=== PATIENT | female | born 1945 | race Caucasian/White ===

== ENCOUNTER 2021-04-23 09:55 | Outpatient (CLI) | payer MEDICARE, BC ==
[2021-04-23 11:15] LABS: Mean Corpuscular HGB CONC 33.6 g/dL (32.0-36.0); Mean Corpuscular Hemoglobin 31.6 pg (27.0-33.0); Mean Corpuscular Volume 94.1 fl (81.6-98.3); Platelet Count 221 10x3/uL (150-450); RBC Distribution Width 12.5 % (11.5-14.5); Red Blood Cell (RBC) Count 4.43 10x6/uL (3.90-5.03); White Blood Cell (WBC) Count 13.8 10x3/uL (3.5-10.5)
[2021-04-23 11:45] LABS: Anion Gap 18 mmol/L (10-20); BUN (Urea Nitrogen) 33 mg/dL (9.8-20.1); Calc. Creatinine Clearance 0 mL/min (70-130); Calcium 9.9 mg/dL (7.8-10.44); Carbon Dioxide 17 mmol/L (23-31); Chloride 110 mmol/L (98-107); Glucose 225 mg/dL (83-110); Potassium 4.9 mmol/L (3.5-5.1); Sodium 140 mmol/L (136-145)
[2021-04-23 16:03] LABS: Hemoglobin A1c 5.9 % (4.0-6.0)
[2021-04-23 17:35] LABS: SARS-CoV-2 PCR by NAA Not Detected (NotDetected)
== END 2021-04-23 09:56 | disposition home or self-care (01) ==
LOC: CSHLAB 09:55
PROVIDERS: ATTEND Orthopaedic Surgery
DX: Z01.818 Encounter for other preprocedural examination (principal); Z20.822 Contact with and (suspected) exposure to COVID-19
CPT/HCPCS: 80048; 83036; 85027; 87081; 93005; 93010; U0003; U0005

== ENCOUNTER 2021-04-28 05:26 | Inpatient (IN) | payer MEDICARE, BC ==
[2021-04-24 13:35] VITALS: BMI 37.8
[2021-04-28] MEDS ORDERED: Gabapentin 300 MG CAP ONE (05:47)
[2021-04-28] MEDS ORDERED: Acetaminophen 500 MG TAB ONE (05:47)
[2021-04-28] MEDS ORDERED: Lidocaine 1% MPF 2 ML VIAL ONE ×2 (05:48→06:17)
[2021-04-28] MEDS ORDERED: CeleCOXIB 100 MG CAP ONE (05:48)
[2021-04-28] MEDS ORDERED: Lidocaine 4% Topical Sol 50 ML BOT ONE (05:53)
[2021-04-28] MEDS ORDERED: Rocuronium Bromide 10 MG/ML (10ML VIAL) ONE (05:59)
[2021-04-28] MEDS ORDERED: PROPOFOL 20 ML ONE (05:59)
[2021-04-28] MEDS ORDERED: Fentanyl 100 MCG/2 ML VIAL ONE ×2 (05:59→06:04)
[2021-04-28] MEDS ORDERED: Ondansetron PF 4 MG/2 ML Vial ONE (05:59)
[2021-04-28] MEDS ORDERED: Midazolam HCl 2 mg/2 ml Vial ONE ×2 (05:59→06:03)
[2021-04-28] MEDS ORDERED: Dexamethasone 20 MG/5 ML VIAL ONE (05:59)
[2021-04-28] MEDS ORDERED: Lidocaine 1% PF 5 ML VIAL ONE ×2 (06:00→06:04)
[2021-04-28] MEDS ORDERED: EPINEPHrine 1 MG/ML AMP ONE ×2 (06:03→06:30)
[2021-04-28] MEDS ORDERED: Dexamethasone 4 mg/ml Vial ONE (06:03)
[2021-04-28] MEDS ORDERED: Bupivacaine PF 0.5% 30 ML VIAL ONE (06:04)
[2021-04-28] MEDS ORDERED: Ketorolac Tromethamine 30 MG/ML VIAL ONE (06:30)
[2021-04-28] MEDS ORDERED: Morphine 10 MG/ML VIAL ONE (06:31)
[2021-04-28] MEDS ORDERED: Tranexamic Acid 1,000 MG/10 ML VIAL ONE (06:31)
[2021-04-28] MEDS ORDERED: Lidocaine 1% w/Epinephrine 1:100K 30 ML VIAL ONE (06:32)
[2021-04-28] MEDS ORDERED: Ropivacaine 0.2% HCl/PF 0 ML ONE (06:32)
[2021-04-28] MEDS ORDERED: Neomycin-Polymyxin 1 ML AMP ONE (06:33)
[2021-04-28] MEDS ORDERED: ceFAZolin 2 GM/DEX 5% 100 ML BAG ONE (06:51)
[2021-04-28] MEDS ORDERED: Morphine 2 MG/ML VIAL SLOW IVP PRN (06:53)
[2021-04-28] MEDS ORDERED: Ondansetron PF 4 MG/2 ML Vial IVP PRN (06:53)
[2021-04-28] MEDS ORDERED: traMADol HCl 50 MG TAB PO PRN (06:53)
[2021-04-28] MEDS ORDERED: Bisacodyl 10 MG SUPP PR PRN (06:53)
[2021-04-28] MEDS ORDERED: Zolpidem Tartrate 5 MG TAB PO PRN (06:53)
[2021-04-28] MEDS ORDERED: Acetaminophen 325 MG TAB PO PRN (06:53)
[2021-04-28] MEDS ORDERED: HYDROcodone/Acetaminophen 7.5/325 mg Tablet PO PRN (06:53)
[2021-04-28] MEDS ORDERED: SUGAMMADEX SODIUM 200 MG/2 ML VIAL ONE (06:58)
[2021-04-28] MEDS ORDERED: ePHEDrine Sulfate 50 MG/10 ML VIAL ONE (07:33)
[2021-04-28] MEDS ORDERED: Famotidine 20 MG TAB PO SCH (09:00)
[2021-04-28] MEDS: Sodium Chloride 0.9% 1,000 ML IV SCH (11:30)
[2021-04-28] MEDS: CEFAZOLIN 2 GM in Premix Bag 1 BAG IVPB SCH ×2 (11:30→15:55)
[2021-04-28] MEDS: Ketorolac Tromethamine 30 MG/ML VIAL IVP SCH ×2 (11:30→17:46)
[2021-04-28] MEDS ORDERED: CEFAZOLIN 2 GM in Premix Bag 1 BAG IVPB SCH (23:00)
[2021-04-29] MEDS: Ketorolac Tromethamine 30 MG/ML VIAL IVP SCH ×2 (00:48→06:36)
[2021-04-29] MEDS: Sodium Chloride 0.9% 1,000 ML IV SCH (02:20)
[2021-04-29 07:38] VITALS: BP 159/81; TEMP 96.8
[2021-04-29] MEDS ORDERED: Famotidine 20 MG TAB PO SCH (09:00)
== END 2021-04-29 09:50 | disposition home or self-care (01) | DRG 483 ==
LOC: CSHSDC 05:26 → CSHTELE 10:29
PROVIDERS: ADMIT Orthopaedic Surgery; ATTEND Orthopaedic Surgery
PROC: 0RRK0JZ Replacement of Left Shoulder Joint with Synthetic Substitute, Open Approach (ICD-10-PCS; principal; 2021-04-28)
PROC: 0RPK0JZ Removal of Synthetic Substitute from Left Shoulder Joint, Open Approach (ICD-10-PCS; 2021-04-28)
DX: T84.039A Mechanical loosening of unspecified internal prosthetic joint, initial encounter (principal); M89.522 Osteolysis, left upper arm
CPT/HCPCS: 36416; C1713; J0171; J0690; J1100; J1885; J2250; J2270; J2405; J2704; J2795; J3010; J3370; J7050; S0020